=== PATIENT | female | born 1965 | race Caucasian/White ===

== ENCOUNTER 2019-02-26 19:16 | Emergency (ER) | payer BC ==
[~2019-02-26] VITALS: Ht 167.6 cm; Wt 79.5 kg
[2019-02-26 19:20] VITALS: TEMP 97.9
[2019-02-26 19:51] LABS: BASO % 0.3 % (0.0-2.0); EOS % 0.3 % (0-4.0); GRAN # 5.5 (1.4-6.5); GRAN % 78.3 % (42.2-75.2); HEMATOCRIT 38.5 % (37.0-47.0); LYMPH % 14.4 % (20.0-51.0); MEAN CELL VOLUME 89 fl (80.0-100.0); MEAN CORPUSCULAR HEMOGLOBIN 30 pg (27.0-31.0); MEAN CORPUSCULAR HGB CONC 34 g/dl (33.0-37.0); MEAN PLATELET VOLUME 9.8 fl (7.4-10.4); MONO # 0.5 (0.1-0.6); MONO % 6.4 % (1.7-9.3); PLATELET COUNT 218 K/mm3 (130-400); RED BLOOD COUNT 4.31 M/mm3 (4.10-5.30); REDCELL DISTRIBUTION WIDTH-CV 12.2 % (11.5-14.5)
[2019-02-26 20:05] LABS: ALANINE AMINOTRANSFERASE 29 U/L (9-52); ALBUMIN 4.4 gm/dL (3.5-5.0); ALKALINE PHOSPHATASE 61 U/L (50-136); ANION GAP 13 mmol/L (7-16); AST,SGOT 41 U/L (15-37); BILIRUBIN,TOTAL 0.9 mg/dL (0.0-1.0); BLOOD UREA NITROGEN 9 mg/dL (7-17); CALCIUM 9.2 mg/dL (8.4-10.2); CARBON DIOXIDE 21 mmol/L (22-30); CHLORIDE 100 mmol/L (98-107); CREATININE, serum 0.68 (0.52-1.25); GLUCOSE 208 mg/dL (74-106); POTASSIUM 3.5 mmol/L (3.4-5.0); SODIUM 134 mmol/L (137-145); TOTAL PROTEIN 7.7 gm/dL (6.4-8.2)
[2019-02-26] MEDS ORDERED: ZITHROMAX 250M250 MG PO (20:08)
[2019-02-26] MEDS ORDERED: TUSS PO (20:13)
[2019-02-26] MEDS ORDERED: GLUCOPHAGE500 MG/TAB PO (20:21)
[2019-02-26 20:28] LABS: TROPONIN-I < 0.012 ng/mL (0.000-0.035)
[2019-02-26 20:55] VITALS: BP 111/78; PULSE 94
== END 2019-02-26 20:55 | disposition home or self-care (01) ==
LOC: COL.ER 19:16
PROVIDERS: Emergency Medicine
DX: I47.1 Supraventricular tachycardia (principal); J18.9 Pneumonia, unspecified organism; E11.9 Type 2 diabetes mellitus without complications; Z79.84 Long term (current) use of oral hypoglycemic drugs